=== PATIENT | male | born 1960 | race Caucasian/White ===

== ENCOUNTER 2017-08-02 16:54 | Emergency (ER) | payer BC ==
[2017-08-02 18:26] LABS: ABS Basophils 0.1 10^3/ul (0-0.2); ABS Eosinophils 0.1 10^3/ul (0-0.6); ABS Lymphocytes 1.8 10^3/ul (1.0-4.8); ABS Monocytes 0.7 10^3/ul (0-0.8); ABS Nucleated RBC 0 10^3/ul; Eosinophil % 1.6 % (0-6); Hematocrit 47 % (42-52); Hemoglobin 16.3 g/dl (14.0-18.0); Mean Corpuscular HGB Conc 34 g/dl (31-36); Mean Corpuscular Hemoglobin 29 pg (27-31); Mean Corpuscular Volume 85 fL (80-94); Mean Platelet Volume 9 um3 (7.4-10.4); Nucleated Red Blood Cells % 0.1; Platelet Count 305 10^3/ul (150-450); Red Blood Count 5.55 10^6/ul (4.0-5.4); Red Cell Distribution Width 13 % (10.5-15); White Blood Count 7.7 10^3/ul (3.5-10.8)
[2017-08-02 18:31] LABS: INR 0.9 (0.77-1.02)
[2017-08-02 18:44] LABS: EGFR Non-African American 56.7 (>60)
[2017-08-02] MEDS ORDERED: Iodixanol* (CONTRAST) 320 MG/ML 100 ML SDV IV ONE (21:07)
--- NOTE | 2017-08-02 21:35 | RAD ---
INDICATION: Chest pain, back pain and shortness of breath COMPARISON: None TECHNIQUE: Axial source images were acquired following the administration of 88 mL of Visipaque [address] angiographic technique. Coronal and sagittal reconstructed images were constructed and reviewed. FINDINGS: There there are no filling defects in the pulmonary arteries to indicate acute pulmonary embolic disease. Linear density at the left lower lung, pleural-based, is most consistent with atelectasis. There are no focal infiltrates or effusions. There are no pulmonary parenchymal masses. The heart is normal in size. There is no evidence of pericardial effusion. There is no evidence of aortic aneurysm or dissection. There is no mediastinal, hilar, or axillary lymphadenopathy. Degenerative changes of the thoracic spine includes loss of intervertebral disc height. Limited views of the upper abdomen show no abnormalities. IMPRESSION: 1. No CT of evidence of pulmonary embolism. 2. There is a small amount of atelectasis noted at the left lower lobe.
[2017-08-02] MEDS ORDERED: Lidocaine 2% VISCOUS* 15 ML UDC PO ONE (22:02)
[2017-08-02] MEDS ORDERED: Al Hydrox/Mg Hydrox/Simet LIQ* 30 ML UDC PO ONE (22:02)
--- NOTE | 2017-08-02 23:34 | ED ---
Jesse Gaviria Gabriel, scribed for Steve Perez MD on 08/02/17 at 1909 . HPI Chest Pain - HPI Summary HPI Summary: This patient is a 57 year old M presenting to [facility] accompanied by his with a chief complaint of CP since 07/19/17.The patient rates the constant pain 5/ 10 in severity and radiating into his back. Symptoms aggravated by slight movement, not necessarily exertion. Patient reports SOB and dry cough. Patient denies nausea, diaphoresis, chills, edema, and LE pain. Patient states he need to yawn to get a full breath in and is only sleeping about 4-6 hours a night. He has a Hx of HTN, HLD, and GERD. Patient had an injury in his LLE extremity 6 months ago which resulted in a baseball sized contusion on his ling. He reports a very intensive work schedule between working night shifts at [employer] and also working afternoons as a middle school tutor. - History of Current Complaint Chief Complaint: EDChestPainROMI Time Seen by Provider: 08/02/17 18:34 Hx Obtained From: Patient Onset/Duration: Started Weeks Ago - 2, Still Present Timing: Constant Initial Severity: Moderate Current Severity: Moderate Pain Intensity: 5 Pain Scale Used: 0-10 Numeric Chest Pain Location: Diffuse Chest Pain Radiates: Yes Chest Pain Radiates To:: Back Associated Signs and Symptoms: Positive: Negative - nausea, diaphoresis, chills , edema, and LE pain, Other: - SOB and dry cough - Additional Pertinent History Primary Care Physician: DALE - Allergy/Home Medications Allergies/Adverse Reactions: Allergies Allergy/AdvReac Type Severity Reaction Status Date / Time Atenolol Allergy Unknown Verified 08/26/15 19:23 Reaction Details Home Medications: Home Medications Aspirin EC Low Dose* [Ecotrin EC Low Dose 81 MG*] 81 mg PO DAILY 08/02/17 [ History Confirmed 08/02/17] Hydrochlorothiazide TAB* [Hydrodiuril TAB*] 25 mg PO DAILY 08/02/17 [History Confirmed 08/02/17] Lisinopril TAB* [Prinivil TAB*] 5 mg PO DAILY 08/02/17 [History Confirmed ] Metoprolol Succinate XL TAB* [Toprol XL TAB*] 50 mg PO DAILY 08/02/17 [History Confirmed 08/02/17] Omeprazole CAP* [Prilosec CAP* 20 MG] 40 mg PO BID 08/02/17 [History Confirmed 08/02/17] Potassium Chlor TAB* [Klor Con ER TAB*] 10 meq PO DAILY 08/02/17 [History Confirmed 08/02/17] Sucralfate TAB* [Carafate*] 1 gm PO QID 08/02/17 [History Confirmed 08/02/17] PMH/Surg Hx/FS Hx/Imm Hx Endocrine/Hematology History: Denies: Hx Diabetes Cardiovascular History: Reports: Hx Angina, Hx Hypercholesterolemia, Hx Hypertension Denies: Hx Atrial Fibrillation, Hx Coronary Artery Disease, Hx Myocardial Infarction Respiratory History: Denies: Hx Asthma, Hx Chronic Obstructive Pulmonary Disease (COPD) GI History: Reports: Hx Gastroesophageal Reflux Disease - Cancer History Cancer Type, Location and Year: 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 - Surgical History Surgery Procedure, Year, and Place: skin CA on upper left back Infectious Disease History: No Infectious Disease History: Denies: Traveled Outside the [place] in Last 30 Days - Family History Known Family History: Positive: Cardiac Disease, Hypertension, Other - + CVA, negative for cancer Negative: Diabetes - Social History Alcohol Use: Occasionally Alcohol Amount: 8-10 beers per day Substance Use Type: Reports: None Hx Tobacco Use: No Smoking Status (MU): Never Smoked Tobacco Review of Systems Negative: Fever, Chills, Skin Diaphoresis Negative: Erythema Negative: Sore Throat Positive: Chest Pain Positive: Shortness Of Breath, Cough Negative: Abdominal Pain, Vomiting, Nausea Negative: dysuria, hematuria Musculoskeletal: Negative - LE pain Negative: Myalgia, Edema Negative: Rash Neurological: Negative - dizziness All Other Systems Reviewed And Are Negative: Yes Physical Exam - Summary Physical Exam Summary: Constitutional: Well-developed, Well-nourished, Alert. (-) Distressed Skin: Warm, Dry HENT: Normocephalic; Atraumatic Eyes: Conjunctiva normal Neck: Musculoskeletal ROM normal neck. (-) JVD, (-) Stridor, (-) Tracheal deviation Cardio: Rhythm regular, rate normal, Heart sounds normal; Intact distal pulses; The pedal pulses are 2+ and symmetric. Radial pulses are 2+ and symmetric. (-) Murmur Pulmonary/Chest wall: Effort normal. (-) Respiratory distress, (-) Wheezes, (-) Rales Abd: Soft, (-) Tenderness, (-) Distension, (-) Guarding, (-) Rebound Musculoskeletal: (-) Edema Lymph: (-) Cervical adenopathy Neuro: Alert, Oriented x3 Psych: Mood and affect Normal Triage Information Reviewed: Yes Vital Signs On Initial Exam: Initial Vitals Temp Pulse Resp BP Pulse Ox 98.6 F 76 16 120/76 96 08/02/17 17:00 08/02/17 17:00 08/02/17 17:00 08/02/17 17:00 08/02/17 17:00 Vital Signs Reviewed: Yes - Jose Martin Coma Scale Coma Scale Total: 15 Diagnostics - Vital Signs Vital Signs Temp Pulse Resp BP Pulse Ox 08/02/17 17:59 71 18 98 08/02/17 17:57 65 97 08/02/17 17:00 98.6 F 76 16 120/76 96 - Laboratory Lab Results: Lab Results 08/02/17 08/02/17 08/02/17 Range/Units 17:40 17:40 17:40 WBC 7.7 (3.5-10.8) 10^3/ul RBC 5.55 H (4.0-5.4) 10^6/ul Hgb 16.3 (14.0-18.0) g/dl Hct 47 (42-52) % MCV 85 (80-94) fL MCH 29 (27-31) pg MCHC 34 (31-36) g/dl RDW 13 (10.5-15) % Plt Count 305 (150-450) 10^3/ul MPV 9 (7.4-10.4) um3 Neut % (Auto) 65.7 (38-83) % Lymph % (Auto) 23.0 L (25-47) % Burke % (Auto) 8.8 (1-9) % Eos % (Auto) 1.6 (0-6) % Baso % (Auto) 0.9 (0-2) % Absolute Neuts (auto) 5.0 (1.5-7.7) 10^3/ul Absolute Lymphs (auto) 1.8 (1.0-4.8) 10^3/ul Absolute Monos (auto) 0.7 (0-0.8) 10^3/ul Absolute Eos (auto) 0.1 (0-0.6) 10^3/ul Absolute Basos (auto) 0.1 (0-0.2) 10^3/ul Absolute Nucleated RBC 0 10^3/ul Nucleated RBC % 0.1 INR (Anticoag Therapy) 0.90 (0.77-1.02) Sodium 134 (133-145) mmol/L Potassium 3.8 (3.5-5.0) mmol/L Chloride 97 L (101-111) mmol/L Carbon Dioxide 32 (22-32) mmol/L Anion Gap 5 (2-11) mmol/L BUN 15 (6-24) mg/dL Creatinine 1.30 H (0.67-1.17) mg/dL Est GFR ( Amer) 72.9 (>60) Est GFR (Non-Af Amer) 56.7 (>60) BUN/Creatinine Ratio 11.5 (8-20) Glucose 92 (70-100) mg/dL Calcium 9.6 (8.6-10.3) mg/dL Total Bilirubin 0.70 (0.2-1.0) mg/dL AST 23 (13-39) U/L ALT 24 (7-52) U/L Alkaline Phosphatase 51 (34-104) U/L Troponin I 0.00 (<0.04) ng/mL Total Protein 7.5 (6.4-8.9) g/dL Albumin 4.3 (3.2-5.2) g/dL Globulin 3.2 (2-4) g/dL Albumin/Globulin Ratio 1.3 (1-3) Result Diagrams: 08/02/17 17:40 08/02/17 17:40 Lab Statement: Any lab studies that have been ordered have been reviewed, and results considered in the medical decision making process. - CT CTA Chest/thorax CT Interpretation Completed By: Radiologist - 1. No CT of evidence of pulmonary embolism. 2. There is a small amount of atelectasis noted at the left lower lobe. ED physician has reviewed this radiology report. - EKG 17:56 Cardiac Rate: NL EKG Rhythm: Sinus Rhythm - at 63 BPM EKG Interpretation: No STEMI Re-Evaluation - Re-Evaluation First Eval Re-Evaluation Time: 23:00 - The patient has had no significant progression. Change: Unchanged Chest Pain Course/Dx - Course Assessment/Plan: This patient is a 57 year old M presenting to [facility] accompanied by his with a chief complaint of CP since 07/19/17.The patient rates the constant pain 5/10 in severity and radiating into his back. Symptoms aggravated by movement. CTA ABD/Thorax reveals, per radiologist, 1. No CT of evidence of pulmonary embolism. 2. There is a small amount of atelectasis noted at the left lower lobe. Test results with no significant abnormalities. In the ED course the patient was given Maalox, with some relief of pain. He has had two weeks of constant pain in his chest and thoracic back to the right of midline, worse with movement. No typical anginal associated symptoms. Two negative troponins, CTA negative for PE/aneurysm. I did have a discussion with the patient and his about the need for close followup, possibly provocative testing including stress testing to be arranged by his PCP, and the need to return to the ER for changing or worsening symptoms. Light duty at work was ordered. - Chest Pain Differential Diagnosis/HQI/PQRI: Acute IN, Angina, Aortic Aneurysm, Chest Wall, GI Disease, Lower Respiratory Infection, Pulmonary Embolism, Other: - muscle strain - Diagnoses Provider Diagnoses: Chest pain, Thoracic back pain Discharge - Discharge Plan Condition: Good Disposition: HOME Prescriptions: Lidocaine PATCH 5%* [Lidoderm 5% Patch*] 1 patch TRANSDERM DAILY #20 patch Patient Education Materials: Thoracic Pain (ED), Chest Pain (ED), Thoracic Back Strain (ED) Forms: *Work Release Referrals: Jaleesa Paris MD [Primary Care Provider] - 2 Days The documentation as recorded by the Jesse phan Gabriel accurately reflects the service I personally performed and the decisions made by , Steve Perez MD.
[2017-08-02 23:38] VITALS: BP 120/87
== END 2017-08-02 23:38 | disposition home or self-care (01) ==
LOC: ED 16:54
DX: R07.89 Other chest pain (principal); M54.6 Pain in thoracic spine; R06.02 Shortness of breath; R05 Cough; Z79.82 Long term (current) use of aspirin; I20.9 Angina pectoris, unspecified; I10 Essential (primary) hypertension; E78.00 Pure hypercholesterolemia, unspecified; K21.9 Gastro-esophageal reflux disease without esophagitis; Z85.828 Personal history of other malignant neoplasm of skin
CPT/HCPCS: 36415; 71275; 80053; 84484; 85025; 85610; 93005; 99283; A9270-GY; Q9967